=== PATIENT | male | born 1975 | race Caucasian/White ===

== ENCOUNTER 2018-01-13 05:55 | Day surgery (SDC) | payer OTHER ==
[~2018-01-13 05:55] MED LIST: COZAAR50 MG PO
== END 2018-01-13 12:35 | disposition home or self-care (01) ==
LOC: CIR.AMB 05:55
DX: M65.311 Trigger thumb, right thumb (principal); M65.321 Trigger finger, right index finger; M65.331 Trigger finger, right middle finger